=== PATIENT | male | born 1950 | race Caucasian/White ===

== ENCOUNTER 2022-07-24 08:06 | Inpatient (IN) | payer MEDICARE, OTHER ==
[2022-07-24] MEDS ORDERED: SUGAMMADEX SODIUM 200 MG/2 ML VIAL ONE (11:25)
[2022-07-24] MEDS ORDERED: Dexamethasone 20 MG/5 ML VIAL ONE (11:29)
[2022-07-24] MEDS ORDERED: Fentanyl 100 MCG/2 ML VIAL ONE (11:29)
[2022-07-24] MEDS ORDERED: Lidocaine 2% PF 5 ML VIAL ONE (11:29)
[2022-07-24] MEDS ORDERED: Rocuronium Bromide 10 MG/ML (10ML VIAL) ONE (11:29)
[2022-07-24] MEDS ORDERED: PROPOFOL 20 ML ONE ×2 (11:29→12:31)
[2022-07-24] MEDS ORDERED: Ondansetron PF 4 MG/2 ML Vial ONE (11:29)
[2022-07-24] MEDS ORDERED: Midazolam HCl 2 mg/2 ml Vial ONE (11:29)
[2022-07-24] MEDS ORDERED: CEFAZOLIN 1 GM VIAL ONE (11:41)
[2022-07-24] MEDS ORDERED: Neomycin-Polymyxin 1 ML AMP ONE (11:45)
[2022-07-24] MEDS ORDERED: EPINEPHrine 1 MG/ML AMP ONE (11:45)
[2022-07-24] MEDS ORDERED: Lidocaine 1% PF 5 ML VIAL ONE (11:45)
[2022-07-24] MEDS ORDERED: Ondansetron PF 4 MG/2 ML Vial IVP PRN (12:50)
[2022-07-24] MEDS ORDERED: Acetaminophen 650 MG Suppository PR PRN (12:50)
[2022-07-24] MEDS ORDERED: Acetaminophen W/ Codeine 5 ML UDCUP PO PRN (12:58)
[2022-07-24] MEDS ORDERED: hydrALAZINE 20 MG/ML VIAL SLOW IVP PRN (14:53)
[2022-07-24] MEDS ORDERED: FLU VACC QS2022-23(65YR UP)/PF 240 MCG/0.7 ML SYRINGE IM ONE (15:30)
[2022-07-24] MEDS: Morphine 4 MG/ML VIAL SLOW IVP PRN (15:47)
[2022-07-24] MEDS: D5 1/2 NS 1,000 ML IV SCH ×2 (15:47→23:20)
[2022-07-24] MEDS ORDERED: Famotidine/PF 20 mg/2ml Vial SLOW IVP SCH (21:00)
[2022-07-24] MEDS: Atorvastatin Calcium 10 MG TAB PO SCH (21:19)
[2022-07-24] MEDS: Nebivolol HCl 5 MG TAB PO SCH (21:20)
[2022-07-25] MEDS: Morphine 4 MG/ML VIAL SLOW IVP PRN ×4 (03:44→19:53)
[2022-07-25 04:45] LABS: #Monocytes 0.4 10x3/uL (0.0-1.1); #Neutrophils 10.5 10x3/uL (1.5-8.4); %Basophils 0.1 % (0.0-2.0); %Lymphocytes 9.9 % (18.0-47.0); %Neutrophils 86.6 % (40.0-75.0); Mean Corpuscular Hemoglobin 32.2 pg (27.0-33.0); Mean Corpuscular Volume 94.5 fl (81.2-95.1); Mean Platelet Volume 9.5 fl (7.4-10.4); Platelet Count 406 10x3/uL (150-450); RBC Distribution Width 12.5 % (11.5-14.5); Red Blood Cell (RBC) Count 3.11 10x6/uL (4.32-5.72); White Blood Cell (WBC) Count 12.2 10x3/uL (3.5-10.5)
[2022-07-25 04:58] LABS: Prothrombin Time 10.9 sec (9.5-12.1)
[2022-07-25 05:04] LABS: Anion Gap 12 mmol/L (10-20); BUN (Urea Nitrogen) 16 mg/dL (8.4-25.7); Calc. Creatinine Clearance 51 mL/min (70-130); Calcium 8.9 mg/dL (7.8-10.44); Carbon Dioxide 27 mmol/L (23-31); Chloride 100 mmol/L (98-107); Estimated GFR 63; Glucose 182 mg/dL (80-115); Potassium 4.4 mmol/L (3.5-5.1); Sodium 135 mmol/L (136-145)
[2022-07-25] MEDS: Levothyroxine 150 MCG TAB PO SCH (05:36)
[2022-07-25] MEDS: Amlodipine 10 MG TAB PO SCH (09:21)
[2022-07-25] MEDS: Famotidine/PF 20 mg/2ml Vial SLOW IVP SCH ×2 (09:21→19:53)
[2022-07-25] MEDS: D5 1/2 NS 1,000 ML IV SCH (09:22)
[2022-07-25] MEDS ORDERED: Rocuronium Bromide 10 MG/ML (10ML VIAL) ONE (13:19)
[2022-07-25] MEDS ORDERED: Fentanyl 100 MCG/2 ML VIAL ONE (13:19)
[2022-07-25] MEDS ORDERED: PROPOFOL 20 ML ONE (13:19)
[2022-07-25] MEDS ORDERED: Midazolam HCl 2 mg/2 ml Vial ONE (13:19)
[2022-07-25] MEDS ORDERED: Glycopyrrolate 0.2 MG/ML 5 ML SYRINGE ONE (14:09)
[2022-07-25] MEDS ORDERED: Ondansetron ODT 4 MG TAB SL PRN (18:10)
[2022-07-25] MEDS: Morphine 2 MG/ML VIAL SLOW IVP PRN ×2 (18:21→22:46)
[2022-07-25] MEDS: Nebivolol HCl 5 MG TAB PO SCH (19:53)
[2022-07-25] MEDS: Atorvastatin Calcium 10 MG TAB PO SCH (19:54)
[2022-07-26] MEDS: Morphine 4 MG/ML VIAL SLOW IVP PRN ×5 (00:09→20:52)
[2022-07-26] MEDS: D5 1/2 NS 1,000 ML IV SCH ×2 (01:28→08:26)
[2022-07-26] MEDS: Levothyroxine 150 MCG TAB PO SCH (04:57)
[2022-07-26 06:27] VITALS: BMI 22.6
[2022-07-26] MEDS: Famotidine/PF 20 mg/2ml Vial SLOW IVP SCH (08:26)
[2022-07-26] MEDS: Amlodipine 10 MG TAB PO SCH (08:26)
[2022-07-26] MEDS: Morphine 2 MG/ML VIAL SLOW IVP PRN (11:55)
[2022-07-26] MEDS ORDERED: Iopamidol 370 76% 100 ML VIAL ONE (14:17)
[2022-07-26] MEDS: Atorvastatin Calcium 10 MG TAB PO SCH (20:57)
[2022-07-26] MEDS: Nebivolol HCl 5 MG TAB PO SCH (20:57)
[2022-07-26] MEDS: HYDROcodone/Acetaminophen 5/325 mg Tablet PO PRN (22:55)
[2022-07-27] MEDS: Morphine 4 MG/ML VIAL SLOW IVP PRN ×4 (04:15→18:23)
[2022-07-27] MEDS: Levothyroxine 150 MCG TAB PO SCH (06:22)
[2022-07-27] MEDS: Acetaminophen 325 MG TAB PER TUBE PRN (06:22)
[2022-07-27] MEDS: Amlodipine 10 MG TAB PO SCH (10:00)
[2022-07-27] MEDS ORDERED: Acetylcysteine 800 MG/4 ML VIAL INH SCH (13:00)
[2022-07-27] MEDS: Scopolamine 1.5 mg/72 hour Patch TD SCH (14:32)
[2022-07-27] MEDS: Atorvastatin Calcium 10 MG TAB PO SCH (21:21)
[2022-07-27] MEDS: guaiFENesin ER 600 MG TAB PO SCH (21:21)
[2022-07-27] MEDS: Nebivolol HCl 5 MG TAB PO SCH (21:21)
[2022-07-27] MEDS: HYDROcodone/Acetaminophen 5/325 mg Tablet PO PRN (21:22)
[2022-07-28] MEDS: Acetaminophen 325 MG TAB PER TUBE PRN (00:27)
[2022-07-28] MEDS: Levothyroxine 150 MCG TAB PO SCH (06:01)
[2022-07-28] MEDS: HYDROcodone/Acetaminophen 5/325 mg Tablet PO PRN (06:01)
[2022-07-28] MEDS ORDERED: Piperacillin/Tazobactam 3.375 GM in Sodium Chloride 0.9% 100 ML IVPB SCH (07:30)
[2022-07-28 08:51] LABS: #Eosinphils 0.1 10x3/uL (0.0-0.5); #Monocytes 0.4 10x3/uL (0.0-1.1); #Neutrophils 7.1 10x3/uL (1.5-8.4); %Basophils 0.2 % (0.0-2.0); %Eosinophils 0.6 % (0.0-6.0); %Lymphocytes 10.6 % (18.0-47.0); %Monocytes 4.9 % (0.0-10.0); %Neutrophils 83.6 % (40.0-75.0); Hemoglobin 8.7 g/dL (13.5-17.5); Mean Corpuscular HGB CONC 33.7 g/dL (32.0-36.0); Mean Corpuscular Hemoglobin 31.8 pg (27.0-33.0); Mean Corpuscular Volume 94.2 fl (81.2-95.1); Mean Platelet Volume 9.6 fl (7.4-10.4); Platelet Count 345 10x3/uL (150-450); RBC Distribution Width 12.6 % (11.5-14.5); Red Blood Cell (RBC) Count 2.74 10x6/uL (4.32-5.72); White Blood Cell (WBC) Count 8.5 10x3/uL (3.5-10.5)
[2022-07-28 09:06] LABS: Anion Gap 14 mmol/L (10-20); BUN (Urea Nitrogen) 17 mg/dL (8.4-25.7); Calc. Creatinine Clearance 65 mL/min (70-130); Calcium 8.5 mg/dL (7.8-10.44); Carbon Dioxide 27 mmol/L (23-31); Chloride 97 mmol/L (98-107); Estimated GFR 66; Glucose 134 mg/dL (80-115); Potassium 3.7 mmol/L (3.5-5.1); Sodium 134 mmol/L (136-145)
[2022-07-28] MEDS: Amlodipine 10 MG TAB PO SCH (09:14)
[2022-07-28] MEDS: guaiFENesin ER 600 MG TAB PO SCH ×2 (09:14→21:27)
[2022-07-28] MEDS: Piperacillin/Tazobactam 3.375 GM in Sodium Chloride 0.9% 100 ML IVPB SCH ×2 (12:29→21:10)
[2022-07-28 17:20] LABS: Bilirubin Neg (Negative); Blood, Urine Negative (Negative); Clarity Clear (Clear); Glucose, Urine (Dipstick) Normal (Negative); Ketone, Urine Negative (Negative); Leukocyte 25 (Negative); Nitrite Negative (Negative); Protein, Urine (Dipstick) 30 mg/dl (Neg-Trace); Urobilinogen Normal mg/dL (Less than 2)
[2022-07-28 17:23] LABS: Urine Culture Reflex No No
[2022-07-28 17:27] LABS: Bacteria/HPF Rare-Few HPF (None Seen); RBC/HPF 0-3 HPF (0-3); Squamous Epithelial 0-3 HPF (0-3)
[2022-07-28] MEDS: Nebivolol HCl 5 MG TAB PO SCH (21:22)
[2022-07-28] MEDS: Atorvastatin Calcium 10 MG TAB PO SCH (21:22)
[2022-07-29] MEDS: Acetaminophen 325 MG TAB PER TUBE PRN ×2 (02:05→10:47)
[2022-07-29] MEDS: Piperacillin/Tazobactam 3.375 GM in Sodium Chloride 0.9% 100 ML IVPB SCH ×3 (04:50→20:55)
[2022-07-29 05:12] LABS: Anion Gap 16 mmol/L (10-20); Calc. Creatinine Clearance 64 mL/min (70-130); Calcium 8.9 mg/dL (7.8-10.44); Carbon Dioxide 24 mmol/L (23-31); Chloride 98 mmol/L (98-107); Estimated GFR 64; Glucose 153 mg/dL (80-115); Sodium 134 mmol/L (136-145)
[2022-07-29 05:24] LABS: BUN (Urea Nitrogen) 16 mg/dL (8.4-25.7)
[2022-07-29 05:30] LABS: #Eosinphils 0.2 10x3/uL (0.0-0.5); #Monocytes 0.7 10x3/uL (0.0-1.1); #Neutrophils 7.6 10x3/uL (1.5-8.4); %Basophils 0.2 % (0.0-2.0); %Eosinophils 2.1 % (0.0-6.0); %Lymphocytes 17.8 % (18.0-47.0); %Monocytes 6.8 % (0.0-10.0); %Neutrophils 72.6 % (40.0-75.0); Hemoglobin 9.1 g/dL (13.5-17.5); Mean Corpuscular Volume 94.4 fl (81.2-95.1); Platelet Count 419 10x3/uL (150-450); RBC Distribution Width 12.4 % (11.5-14.5); Red Blood Cell (RBC) Count 2.84 10x6/uL (4.32-5.72); White Blood Cell (WBC) Count 10.5 10x3/uL (3.5-10.5)
[2022-07-29] MEDS: Levothyroxine 150 MCG TAB PO SCH (06:45)
[2022-07-29] MEDS: Amlodipine 10 MG TAB PO SCH (10:48)
[2022-07-29] MEDS: guaiFENesin ER 600 MG TAB PO SCH ×2 (10:48→22:00)
[2022-07-29] MEDS: Morphine 4 MG/ML VIAL SLOW IVP PRN (17:00)
[2022-07-29] MEDS: Nebivolol HCl 5 MG TAB PO SCH (22:00)
[2022-07-29] MEDS: Atorvastatin Calcium 10 MG TAB PO SCH (22:00)
[2022-07-29] MEDS: Morphine 2 MG/ML VIAL SLOW IVP PRN (22:45)
[2022-07-30] MEDS: Piperacillin/Tazobactam 3.375 GM in Sodium Chloride 0.9% 100 ML IVPB SCH ×3 (04:27→22:01)
[2022-07-30] MEDS: Acetaminophen 325 MG TAB PER TUBE PRN (04:28)
[2022-07-30] MEDS: Levothyroxine 150 MCG TAB PO SCH (06:23)
[2022-07-30] MEDS: guaiFENesin ER 600 MG TAB PO SCH ×2 (09:09→22:01)
[2022-07-30] MEDS: Amlodipine 10 MG TAB PO SCH (09:09)
[2022-07-30] MEDS: Morphine 4 MG/ML VIAL SLOW IVP PRN ×3 (11:21→22:18)
[2022-07-30] MEDS: Scopolamine 1.5 mg/72 hour Patch TD SCH (12:57)
[2022-07-30] MEDS: Nebivolol HCl 5 MG TAB PO SCH (22:01)
[2022-07-30] MEDS: Atorvastatin Calcium 10 MG TAB PO SCH (22:01)
[2022-07-31] MEDS: Piperacillin/Tazobactam 3.375 GM in Sodium Chloride 0.9% 100 ML IVPB SCH ×2 (03:52→12:03)
[2022-07-31] MEDS: Levothyroxine 150 MCG TAB PO SCH (05:22)
[2022-07-31 06:11] LABS: Anion Gap 14 mmol/L (10-20); BUN (Urea Nitrogen) 17 mg/dL (8.4-25.7); Calc. Creatinine Clearance 63 mL/min (70-130); Calcium 8.6 mg/dL (7.8-10.44); Carbon Dioxide 30 mmol/L (23-31); Chloride 95 mmol/L (98-107); Estimated GFR 63; Glucose 121 mg/dL (80-115); Potassium 4.1 mmol/L (3.5-5.1); Sodium 135 mmol/L (136-145)
[2022-07-31 06:18] LABS: #Eosinphils 0.4 10x3/uL (0.0-0.5); #Monocytes 0.8 10x3/uL (0.0-1.1); #Neutrophils 5.8 10x3/uL (1.5-8.4); %Basophils 0.2 % (0.0-2.0); %Eosinophils 4.3 % (0.0-6.0); %Lymphocytes 17.1 % (18.0-47.0); %Monocytes 8.9 % (0.0-10.0); %Neutrophils 68.6 % (40.0-75.0); Hemoglobin 8.5 g/dL (13.5-17.5); Mean Corpuscular HGB CONC 33.6 g/dL (32.0-36.0); Mean Corpuscular Hemoglobin 31.7 pg (27.0-33.0); Mean Corpuscular Volume 94.4 fl (81.2-95.1); Mean Platelet Volume 9.9 fl (7.4-10.4); Platelet Count 436 10x3/uL (150-450); RBC Distribution Width 12.7 % (11.5-14.5); Red Blood Cell (RBC) Count 2.68 10x6/uL (4.32-5.72); White Blood Cell (WBC) Count 8.4 10x3/uL (3.5-10.5)
[2022-07-31] MEDS ORDERED: cloNIDine 0.3mg/24 Hour PATCH TD SCH (09:00)
[2022-07-31] MEDS: HYDROcodone/Acetaminophen 5/325 mg Tablet PO PRN (09:23)
[2022-07-31] MEDS: Amlodipine 10 MG TAB PO SCH (09:23)
[2022-07-31] MEDS: guaiFENesin ER 600 MG TAB PO SCH (09:24)
[2022-07-31 13:16] VITALS: BP 111/56; TEMP 98.5
== END 2022-07-31 16:37 | DRG 11 ==
LOC: CSHSDC 08:06 → CSHICU 15:05 → CSHTELE 07-26 19:27
PROVIDERS: ADMIT Otolaryngology Plastic Surgery within the Head & Neck; ATTEND Student in an Organized Health Care Education/Training Program
PROC: 0CBR8ZX Excision of Epiglottis, Via Natural or Artificial Opening Endoscopic, Diagnostic (ICD-10-PCS; principal; 2022-07-24)
PROC: 0B110F4 Bypass Trachea to Cutaneous with Tracheostomy Device, Open Approach (ICD-10-PCS; 2022-07-24)
PROC: 0BH17EZ Insertion of Endotracheal Airway into Trachea, Via Natural or Artificial Opening (ICD-10-PCS; 2022-07-24)
PROC: 0DH63UZ Insertion of Feeding Device into Stomach, Percutaneous Approach (ICD-10-PCS; 2022-07-25)
PROC: 0B21XFZ Change Tracheostomy Device in Trachea, External Approach (ICD-10-PCS; 2022-07-30)
DX: C32.1 Malignant neoplasm of supraglottis (principal); J69.0 Pneumonitis due to inhalation of food and vomit; J96.00 Acute respiratory failure, unspecified whether with hypoxia or hypercapnia; J38.00 Paralysis of vocal cords and larynx, unspecified; I10 Essential (primary) hypertension; E03.9 Hypothyroidism, unspecified; Z20.822 Contact with and (suspected) exposure to COVID-19; R13.10 Dysphagia, unspecified; E78.5 Hyperlipidemia, unspecified; Z86.73 Personal history of transient ischemic attack (TIA), and cerebral infarction without residual deficits; Z98.890 Other specified postprocedural states; Z79.899 Other long term (current) drug therapy; Z90.89 Acquired absence of other organs; Z87.891 Personal history of nicotine dependence; Z82.49 Family history of ischemic heart disease and other diseases of the circulatory system
CPT/HCPCS: 36415; 70491; 71045; 71260; 80048; 81001; 85025; 85610; 87070; 87086; 87205; 87811; 88305; 88331; 88342; 93005; 93010; 94640; 94760; J0171; J0690; J1100; J2001; J2250; J2270; J2405; J2543; J2704; J3010; J3490; J7042; J7620; Q0162; Q9967; S0028